=== PATIENT | female | born 1980 | race Hispanic/Latino ===

== ENCOUNTER 2025-03-10 18:14 | Emergency (ER) | payer SELFPAY ==
[~2025-03-10] VITALS: Ht 152.4 cm; Wt 85.3 kg
--- NOTE | 2025-03-10 19:12 | NUR ---
UA CUP PROVIDED
--- NOTE | 2025-03-10 19:53 | NUR ---
UA COLLECTED AND SENT
[2025-03-10 20:09] LABS: APPEARANCE,URINE CLOUDY (CLEAR); GLUCOSE, URINE (UA) 500 mg/dL (NEGATIVE); LEUKOCYTE ESTERASE ,URINE 500 Leu/uL (NEGATIVE); NITRATE,URINE 2+ (NEGATIVE); OCCULT BLOOD,URINE +- (TRACE) (NEGATIVE)
[2025-03-10 20:19] LABS: ADD UA MICROSCOPIC YES
[2025-03-10 20:26] LABS: SQUAMOUS EPITHELIAL CELL,UR MANY /HPF (0-2)
--- NOTE | 2025-03-10 20:45 | ERN ---
ED Note History of Present Illness Stated Complaint: ABD PAIN, PAIN WITH URINATION Chief Complaint: Multiple Complaints Time Seen by MD: 19:12 Dictation: This is a 44-year-old female who presented to the emergency room complaining of severe suprapubic pain and also dysuria for the past 1-2 days. The pain was so intense that she experiencing nausea and severe vomitings. She denied any hematuria or flank pain. Temperature 98.8 pulse 101 respirations 20 blood pressure 170/89 with a pulse oximetry of 100% on room air Allergies: Coded Allergies: Penicillins (Unverified Allergy, Unknown, 03/10/25) Home Meds Active Scripts Nitrofurantoin Monohyd/M-Cryst (Macrobid 100 mg Capsule) 100 Mg Capsule, 1 CAP PO BID for 10 Days, #20 CAP 0 Refills Prov:WILSON WARD MD 03/10/25 Past Medical History Past Medical History: No Pertinent History Surgical History: Family History: Negative Social History: Negative LMP: Mar 02, 2025 RN Note Reviewed/Agreed w/PFSH: Yes Review of System Dictation Constitutional: Negative for fever,chills, and weight loss Eyes: Negative for injury, pain,redness, and discharge ENT: Negative for injury,pain or swelling Cardiovascular: Negative for chest pain, palpitations, and edema Respiratory: Negative for shortness of breath, cough, and wheezing, Abdomen/GI: Negative for abdominal pain, nausea, vomiting, diarrhea, and constipation Back: Negative for injury and pain : Negative for injury, bleeding and discharge positive for suprapubic abdominal pain, dysuria and frequency MS/Extremity: Negative for injury and deformity Skin: Negative for rash, and discoloration Neuro: Negative for headache, weakness, numbness, tingling, and seizure Psych: Negative for suicide ideation, homicidal ideation, and hallucinations Initial Vital Sign VS Vital Signs Date Time Temp Pulse Resp B/P (MAP) Pulse Ox O2 Delivery O2 Flow Rate FiO2 03/10/25 19:11 98.8 101 20 170/89 100 Room Air 03/10/25 21:28 0 21 Physical Exam Dictation General: awake, alert, NAD morbidly obese Head/Face: Normocephalic, atraumatic Eyes: PERRL, EOMI, vision at baseline ENT: oral cavity clear, TMs clear, no signs of infection Neck: Trachea midline, supple, no nuchal rigidity Cardiovascular: RRR, normal S1/S2, No MRGs, no JVD Respiratory: CTAB, no respiratory distress, No rales or wheezes Abdomen: Soft, mild tenderness in the hypogastric area, non-distended, normal bowel sounds, no guarding or rebound. Skin: Warm, dry, normal turgor, no rash MS/Extremity: Pulses equal, no cyanosis, neurovascular intact, FROM Neuro: COAx4, GCS 15, strength 5/5, CN 2-12 intact, normal cerebellar exam, normal gait, Psych: Normal behavior, mood, and affect normal Extremities-trace edema without any palpable cords, Homans sign is negative Results (Laboratory/Radiology) Laboratory/Radiology Laboratory Tests Test 03/10/25 19:53 Urine Color YELLOW (YELLOW) Urine Appearance CLOUDY (CLEAR) H Urine pH 6.0 (5.0-8.0) Urine Specific Trion 1.020 (1.001-1.031) Urine Protein 50 mg/dL (NEGATIVE) H Urine Glucose (UA) 500 mg/dL (NEGATIVE) H Urine Ketones >=80 mg/dL (NEGATIVE) Urine Occult Blood +- (TRACE) (NEGATIVE) H Urine Nitrate 2+ (NEGATIVE) H Urine Bilirubin NEGATIVE mg/dL (NEGATIVE) Urine Urobilinogen 0.2 mg/dL (0.2-1.0) Urine Leukocyte Esterase 500 Ladonna/uL (NEGATIVE) H Urine RBC 11-25 /HPF (0-1) H Urine WBC 51-100 /HPF (0-1) H Urine Squamous Epithelial Cells MANY /HPF (0-2) Urine Bacteria FEW /HPF (None Seen) Urine HCG, Qualitative NEGATIVE (NEGATIVE) Labs Reviewed?: Yes ED Course ED Course Orders Procedure Category Date Status Time Urinalysis Profile LAB 03/10/25 Complete 19:40 Culture Urine BROOKE 03/10/25 Complete 20:19 0.9%Nacl 1000ml (Ns PHA 03/10/25 Complete 1000ml) 21:00 ,Urine Test LAB 03/10/25 Complete 20:41 Ceftriaxone 1g Vial PHA 03/10/25 Complete (Rocephine 1g Inj) 21:00 Morphine 4mg Syg PHA 03/10/25 Complete (Morphine 4mg Syg) 21:00 Ondansetron 4mg Inj PHA 9/13/25 Complete (Zofran 4mg Inj) 21:00 Ketorolac PHA 03/10/25 Complete Tromethamine 30mg/Ml 22:30 Current Medications Medications (Trade) Dose Ordered Sig/Chato Route PRN Reason Start Time Stop Time Status Last Admin Dose Admin Ceftriaxone Sodium (ROCEphine 1G INJ) 1 gm ONCE ONCE IVPB 03/10/25 21:00 03/10/25 21:01 DC 03/10/25 21:22 Ketorolac Tromethamine (toRADol) 30 mg ONCE ONCE IVP 03/10/25 22:30 03/10/25 22:31 DC 03/10/25 22:23 Morphine Sulfate (morPHINE 4MG SYG) 4 mg ONCE ONCE IVP 03/10/25 21:00 03/10/25 21:01 DC 03/10/25 21:22 Ondansetron HCl (zoFRAN 4MG INJ) 4 mg ONCE ONCE IVP 03/10/25 21:00 03/10/25 21:01 DC 03/10/25 21:22 Sodium Chloride 1,000 ml @ 0 mls/hr ONCE ONCE IV 03/10/25 21:00 03/10/25 21:01 DC 03/10/25 21:22 Vital Signs Date Time Temp Pulse Resp B/P (MAP) Pulse Ox O2 Delivery O2 Flow Rate FiO2 03/10/25 23:00 98.2 92 18 144/78 98 Room Air* 0 21 03/10/25 22:00 98.2 99 18 153/73 100 Room Air* 0 21 03/10/25 21:28 93 19 165/81 100 Room Air* 0 03/10/25 19:11 98.8 101 20 170/89 100 Room Air We will perform diagnostic labs, and administer medications according to the patient's complaint. Once the results are available, will review and personally interpreted the labs to rule out any acute life-threatening emergency the trach require immediate intervention and treatment. I will then re-evaluate the patient after treatment and diagnostic exams have return to determine whether the patient requires any further testing, can safely be discharged home or need further admission to hospital for additional treatment and evaluation. Urinalysis showed positive leuko esterase, too numerous to count white cells some red cells. Urine test is negative. I updated the patient on the urine tests and possible acute cystitis symptoms and plan to hydrate her gently with pain medicine and empiric antibiotic therapy. Patient felt significantly improved and she will be discharged to home with outp atient antibiotics Medical Decision Making MDM Differential diagnosis: Urosepsis, ovarian cyst, endometrial etiology, vaginitis, intrapelvic pathology Rationale: Tests considered and ordered secondary to shared decision making include: Previous outside records reviewed: Old ER visits. Risk of complication and/or morbidity or mortality of patient management: None Medications-Per medication reconciliation Need for hospitalization: Patient does not meet criteria for hospitalization. Need for emergency major/minor surgery: No you faviola There are no social concerns with this patient. Prescription drug management Prescriptions will include symptomatic care Patient's prior external medical records from other ER visits were reviewed by me as indicated. Prior testing and results from previous visits were reviewed. Prior tests were taken into account with medical decision making and resource utilization, independent historian/historians were used to obtain complete medical history. I independently interpreted the test that were performed, results were reviewed by me and considered findings on radiology if ordered. Medical management and examination interpretation discussions were had by me with other qualified healthcare professionals as indicated for the patient's care. Problem List Problem List: (1) UTI (urinary tract infection) DX & DISP Disposition: Discharge Departure Impression: Primary Impression: UTI (urinary tract infection) Condition: Stable Scripts Nitrofurantoin Monohyd/M-Cryst (Macrobid 100 mg Capsule) 100 Mg Capsule 1 CAP PO BID for 10 Days, #20 CAP 0 Refills Prov: WILSON WARD MD 03/10/25 Additional Instructions: Patient and the caregiver have been informed of all the diagnostic tests and the imaging conducted during the today's visit to the emergency room and has verbalized understanding of the results I have personally reviewed and interpreted all diagnostic exams performed here in the ER today as well as the vital signs documented by the nursing staff. The patient is now being discharged to home and should follow up with the primary care physician or the specialist as directed by the ER staff. Follow-up with primary care provider in 1 to 2 days. Take medications as directed here in the emergency room. Okay to continue home medications unless otherwise discussed during your visit in the emergency room today. Return to your nearest emergency room if symptoms worsen or if there is no improvement. Call 911 if you need immediate assistance. Take Tylenol or Motrin [id number] as needed and if no contraindications are present. Increase oral hydration. A wound culture or urine culture was ordered here in the emergency room department please follow-up with primary care provider and advise them to get repeat ports from our facility. If you had any Marcel wrap/splints that were applied here, please do not remove them until you see your primary care or specialty. Referrals: SELF,REFERRAL (PCP) WILSON WARD MD Mar 10, 2025 20:45
[2025-03-10] MEDS: 0.9%NACL 1000ML 1,000 ML IV ONE (21:22)
[2025-03-10] MEDS ORDERED: NITR100C4 PO (22:52)
[2025-03-10 23:00] VITALS: BP 144/78; PULSE 92; RESP 18; TEMP 98.2; O2SAT 98
== END 2025-03-10 23:09 | disposition home or self-care (01) ==
LOC: EDH 18:14
DX: N39.0 Urinary tract infection, site not specified (principal); Z88.0 Allergy status to penicillin; Z98.890 Other specified postprocedural states
CPT/HCPCS: 99284; 96374; 96375; 87086 ×2; 87186; 81001; 81025; J1885; J7030; J0696; J2405; J2270